=== PATIENT | male | born 2005 | race Caucasian/White ===

== ENCOUNTER 2023-09-07 12:19 | Emergency (ER) | payer MEDICAID | END 2023-09-07 13:52 | disposition home or self-care (01) | LOC: JP.ED 12:19 | DX: S05.01XA Injury of conjunctiva and corneal abrasion without foreign body, right eye, initial encounter (principal); Z88.8 Allergy status to other drugs, medicaments and biological substances; Z87.891 Personal history of nicotine dependence; W44.8XXA Other foreign body entering into or through a natural orifice, initial encounter | CPT/HCPCS: 99283 ==